=== PATIENT | female | born 1960 | race Two or more races ===

== ENCOUNTER 2025-02-24 01:41 | Emergency (ER) | payer MEDICARE, MEDICAID, SELFPAY ==
[2025-02-24 02:00] VITALS: BP 111/74; PULSE 101; RESP 16; TEMP 36.7; O2SAT 100; BMI 27.6
--- NOTE | 2025-02-24 04:09 | EDNOTE_ITS ---
ED Recheck Abnl Lab Rx-RME/HPI General Chief Complaint: General Adult/Misc Complain Stated Complaint: HIGH BLOOD SUGAR Time Seen by Provider: 02/24/25 02:22 Arrival date/time: 02/24/25 01:41 64F with history of DM (not on insulin), anxiety, depression, and hypothyroidism presents to ED with elevated BS at home around the 550s. Patient got scared and took her DM med and came to ED. Patient has no other symptoms except dizziness, which patient states feels like her normal dizziness since she's had chronic sinusitis since a young age. Limitations: no limitations Related Data Home Medications ?Medication ?Instructions ?Recorded ?Confirmed Levothyroxine * (SYNTHROID *) 112 mcg PO QDAY #0 tabs 12/06/13 [place]-3S/Dha/Epa/Fish Oil (Fish 1 cap PO QDAY ##0 050 02/[address] 1,000 mg Softgel) clonazepam 2 mg tablet (Klonopin) 2 mg PO BID #0 tabs 12/06/13 diphenhydramine HCl 25 mg tablet 25 tab PO TID PRN ITC DOMINGO ##0 12/06/13 (Benadryl Allergy) metformin 1,000 mg tablet 1,000 mg PO QDAC #0 tabs 02/12 (Glucophage) sertraline 50 mg tablet (Zoloft) 50 mg PO HS #0 tabs 0 12/06/13 atorvastatin 20 mg tablet (Lipitor) 20 mg PO HS #0 tab s 11/10/16 loratadine 10 mg tablet (Claritin) 10 mg PO QDAY #0 ta bs 11/10/16 omeprazole 40 mg capsule,delayed 40 mg PO QDAY ##0 06/18 release Previous Rx's ?Medication ?Instructions ?Recorded ibuprofen 800 mg tablet 800 mg PO TID PRN pain #30 t abs 04/13/19 Allergies Allergy/AdvReac Type Severity Reaction Status Date / Time No Known Allergies Allergy Verified 02/24/25 01:43 Review of Systems Review of Systems Systems Reviewed: All systems reviewed, normal except as documented Constitutional Constitutional: Reports system reviewed and no additional complaints, except as documented, Denies fever(s) and Denies headache(s) ENT Ears, Nose, Mouth, and Throat: Denies disequilibrium and Denies headache(s) Cardiovascular Cardiovascular: Reports system reviewed and no additional complaints, except as documented, Denies chest pain and Denies dyspnea Respiratory Respiratory: Reports system reviewed and no additional complaints, except as documented, Denies cough and Denies dyspnea Gastrointestinal Gastrointestinal: Reports system reviewed and no additional complaints, except as documented, Denies abdominal pain, Denies nausea and Denies vomiting Neurologic Neurologic: Reports system reviewed and no additional complaints, except as documented, Denies confusion, Denies disequilibrium and Denies headache(s) Psychiatric Psychiatric: Denies confusion Past Medical History Past Medical History CARDIAC: Positive Hypercholesterolemia; Negative Congestive Heart Failure RESPIRATORY: Negative Chronic Obstructive Pulmonary Disease (COPD) GENITOURINARY: Negative Renal Disease ENDOCRINE: Positive Diabetes Mellitus Type 2; Negative Diabetes Mellitus Type 1 PSYCHO/SOCIAL: Positive Anxiety Social History SMOKING STATUS: Never smoker ED Exam General Limitations: Present no limitations General appearance: Present alert, in no apparent distress and anxious Head Head exam: Present atraumatic Eye Eye exam: Present normal appearance, PERRL and EOMI ENT ENT exam: Present normal exam, normal oropharynx and mucous membranes moist Neck Neck exam: Present normal inspection, full ROM and trachea midline Chest Chest inspection: Present normal inspection and symmetric chest wall rise Respiratory Respiratory exam: Present normal lung sounds bilaterally Cardiovascular Cardiovascular exam: Present regular rate, normal rhythm and normal heart sounds Abdominal Exam Abdominal exam: Present soft and normal bowel sounds Extremities Exam Extremities exam: Present normal inspection and full ROM Back Exam Back exam: Present normal inspection and full ROM Neurological Exam Neurological exam: Present alert, oriented X3 and CN II-XII intact Psychiatric Psychiatric exam: Present normal affect and normal mood Skin Skin exam: Present warm, dry, intact and normal color Course Quality Measures none Orders Category Date Time Status Fingerstick [Bedside Blood Glucose] NOW Care 02/24/25 01:54 Completed Vital Signs Vital signs: Vital Signs Temperature 98.1 F 02/24/25 02:00 Pulse Rate 101 H 02/24/25 02:00 Respiratory Rate 16 02/24/25 02:00 Blood Pressure 111/74 02/24/25 02:00 Pulse Oximetry (%) 100 02/24/25 02:00 Oxygen Delivery Method Room Air 02/24/25 02:00 O2 at 100% on RA and WNLs Recheck / Abnormal Lab / Rx MDM Narrative MDM Narrative:: 64F with history of DM (not on insulin), anxiety, depression, and hypothyroidism presents to ED with elevated BS at home around the 550s. Patient got scared and took her DM med and came to ED. Patient has no other symptoms except dizziness, which patient states feels like her normal dizziness since she's had chronic sinusitis since a young age. Physical exam reveals normal pupil response and EOM. CN II-XII grossly intact. Neg pronator test. Strength equal bilaterally. Normal WOB. Gait normal. Speech normal. Patient is afebrile, alert, but anxious. BS is 345. Medical Billing And Coding Instructor given. Patient data External records reviewed:: [facility] previous records Clinical information provided by:: patient Social determinants that could affect healthcare access:: mental health Patient has the following chronic illnesses:: DM (not on insulin), anxiety, depression, and hypothyroidism How is presenting disease/condition affected by chronic disease/condition?: ex acerbated by Evaluation data The following diagnostics were reviewed and interpreted by me:: lab results Lab and/or radiology exams considered but not ordered:: ordered Interpretation Summary: above Medications / Prescriptions Medications or Prescriptions considered but not ordered:: not ordered Medication administrations:: n/a Consultations Consultation(s) initiated? (list below): No Diagnosis Recheck Differential Diagnosis: encounter for medication refill, encounter for wound recheck, encounter for recheck of burn, encounter for removal of sutures, warfarin-induced coagulopathy and other (hyperglycemia ) Most likely diagnosis given after review of the tests above:: hyperglycemia Admission Indicated Admission indicated?: not indicated Admission Request Was there a request for admission?: No Disposition Plan Disposition Plan: Discharge Discharge Attestation Discharge Attestation: The patient and all family members were given an opportunity to ask questions and understood the discharge instructions. Discharge instructions specifically effects, indications for sooner follow up or return to the emergency department, and the expected course of current diagnosis. Patient condition: Stable Discharge Plan Plan Patient Disposition: HOME (Self Care) Discharge Disposition comment: Stable Prescriptions/Referrals Prescriptions/Med Rec: No Action metformin [Glucophage] 1,000 MG tablet 1,000 mg PO QDAC Qty: 0 diphenhydramine HCl [Benadryl Allergy] 25 MG tablet 25 tab PO TID PRN (Reason: ITCHING) Qty: 0 clonazepam [Klonopin] 2 MG tablet 2 mg PO BID Qty: 0 sertraline [Zoloft] 50 MG tablet 50 mg PO HS Qty: 0 Levothyroxine * (SYNTHROID *) 112 MCG tablet 112 mcg PO QDAY Qty: 0 [place]-3S/Dha/Epa/Fish Oil (Fish Oil Dr 1,000 mg Softgel) 1 EACH CAPSULE.DR 1 cap PO QDAY Qty: 0 omeprazole 40 MG capsule,delayed release(DR/EC) 40 mg PO QDAY Qty: 0 loratadine [Claritin] 10 MG tablet 10 mg PO QDAY Qty: 0 atorvastatin [Lipitor] 20 MG tablet 20 mg PO HS Qty: 0 ibuprofen 800 mg tablet 800 mg PO TID PRN (Reason: pain) Qty: 30 0RF Problem List Clinical Impression: Hyperglycemia Patient/Caregiver Discharge Instructions Education Materials: High Blood Sugar (Hyperglycemia) Additional Instructions: Please follow-up with PCP within 24-48 hours and return immediately if symptoms worsen. Print Language: Omani Stand Alone Forms: Patient Portal Info Letter PA/LITERATURE PROFESSOR Supervising Physician PA/LITERATURE PROFESSOR Supervising Physician: Dr. Chin
== END 2025-02-24 02:32 | disposition home or self-care (01) ==
LOC: SERX 02:25
PROVIDERS: Emergency Provider Emergency Medicine
DX: E11.65 Type 2 diabetes mellitus with hyperglycemia (principal); Z79.84 Long term (current) use of oral hypoglycemic drugs
CPT/HCPCS: 99282

== ENCOUNTER 2025-03-13 22:48 | Emergency (ER) | payer MEDICARE, MEDICAID, SELFPAY ==
--- NOTE | 2025-03-13 23:03 | EKG_ITS ---
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: : 1960 Requested By: ED Temporary Provider Order Number: [id number] Reading MD: ED Temporary Provider Measurements Intervals Dailey Rate: 97 P: 69 CA: 154 QRS: -83 QRSD: 81 T: 42 QT: 315 QTc: 401 Interpretive Statements SINUS RHYTHM LOW QRS VOLTAGE IN PRECORDIAL LEADS [QRS DEFLECTION < 1.0 mV IN CHEST LEADS] POSSIBLE RIGHT VENTRICULAR CONDUCTION DELAY [RSR (QR) IN V1/V2] LEFT ANTERIOR FASCICULAR BLOCK [QRS AXIS <= -45, QR IN I, RS IN II] ANTERIOR MYOCARDIAL INFARCTION , PROBABLY OLD [40+ ms Q WAVE AND/OR ST/T ABNORMALITY IN V3/V4] INFERIOR MYOCARDIAL INFARCTION , PROBABLY OLD [40+ ms Q WAVE AND/OR ST/T ABNORMALITY IN II/aVF] Compared to ECG 03/31/2022 01:06:26 Low QRS voltage now present Left anterior fascicular block now present Myocardial infarct finding now present Left-axis deviation no longer present /store/S0/[id number]/[id number].pdf
[2025-03-13 23:29] VITALS: BP 109/62; PULSE 99; RESP 16; TEMP 37; O2SAT 95
--- NOTE | 2025-03-14 00:16 | EDNOTE_ITS ---
ED Dizzyness RME/HPI General Chief Complaint: Dizziness Stated Complaint: DIZZINESS,N/V Time Seen by Provider: 03/13/25 23:27 Arrival date/time: 03/13/25 22:48 RME / HPI RME / HPI Narrative: 65-year-old female presents to the ED with the complaint of ongoing dizziness, nausea, and vomiting. She has had increasing congestion and postnasal drip which bothers her sleep. She is currently taking promethazine 6.25 mg / 5 mL for dizziness . She has had multiple previous occurrences of this. She has been diagnosed with chronic sinusitis for many years. She was seen by a specialist. She is supposed to be using a nasal spray but ran out approximately 2 weeks ago. She is also supposed to be taking loratadine but states it was not working for her so her doctor stopped it and did not prescribe any additional medications. She denies any fever or chills, ear pain or sore throat. She denies any headache, chest pain, or shortness of breath. She denies any abdominal pain. Related Data Home Medications ?Medication ?Instructions ?Recorded ?Confirmed Levothyroxine * (SYNTHROID *) 112 mcg PO QDAY #0 tabs 12/06/13 [place]-3S/Dha/Epa/Fish Oil (Fish 1 cap PO QDAY ##0 05/0 02/[address] 1,000 mg Softgel) clonazepam 2 mg tablet (Klonopin) 2 mg PO BID #0 tabs 12/06/13 diphenhydramine HCl 25 mg tablet 25 tab PO TID PRN ITC DOMINGO ##0 12/06/13 (Benadryl Allergy) metformin 1,000 mg tablet 1,000 mg PO QDAC #0 tabs 02/12 (Glucophage) sertraline 50 mg tablet (Zoloft) 50 mg PO HS #0 tabs 0 12/06/13 atorvastatin 20 mg tablet (Lipitor) 20 mg PO HS #0 tab s 11/10/16 loratadine 10 mg tablet (Claritin) 10 mg PO QDAY #0 ta bs 11/10/16 omeprazole 40 mg capsule,delayed 40 mg PO QDAY ##0 06/18 release Previous Rx's ?Medication ?Instructions ?Recorded ibuprofen 800 mg tablet 800 mg PO TID PRN pain #30 t abs 04/13/19 cetirizine 10 mg tablet (Zyrtec) 10 mg PO QDAY allergy symptoms #30 03/14/25 tabs fluticasone propionate 50 2 spray intranasal QDAY #11 mL 03/14/25 mcg/actuation nasal spray,suspension (Flonase Allergy Relief) meclizine 25 mg tablet 25 mg PO BID PRN dizziness # 14 tabs 03/14/25 ondansetron 4 mg disintegrating 4 mg PO Q6H PRN nausea and 03/14/25 tablet vomiting #10 tabs Allergies Allergy/AdvReac Type Severity Reaction Status Date / Time No Known Allergies Allergy Verified 02/24/25 01:43 Review of Systems Review of Systems Systems Reviewed: All systems reviewed, normal except as documented Past Medical History Past Medical History CARDIAC: Positive Hypercholesterolemia; Negative Congestive Heart Failure RESPIRATORY: Negative Chronic Obstructive Pulmonary Disease (COPD) GENITOURINARY: Negative Renal Disease ENDOCRINE: Positive Diabetes Mellitus Type 2; Negative Diabetes Mellitus Type 1 PSYCHO/SOCIAL: Positive Anxiety Social History SMOKING STATUS: Never smoker ED Exam Narrative Physical exam: A&O, afebrile and non-toxic appearing, Mauritanian-speaking, 65-year-old female who appears older than stated age. No acute distress. Pupils are PERRL, EOMs intact. Cranial nerves II through XII grossly intact. Facial sensory and motor intact. TMs and pharynx without erythema. Sinus drainage noted to posterior pharynx. Nares are pale and boggy. Lung sounds are clear, RRR, Abdomen is non- distended. Moves all extremities well. Course Course Course Narrative: Patient was given Zofran 4 mg ODT for her nausea. She was also given meclizine 25 mg p.o. She will be discharged home with Zyrtec, Flonase nasal spray, and meclizine prescriptions. Quality Measures none Orders Category Date Time Status EKG (ED ONLY) *Do not use* NOW Care 03/13/25 23:03 Completed EKG (ED Only) Stat Exams 03/13/25 23:03 Draft Vital Signs Vital signs: Vital Signs Temperature 98.6 F 03/13/25 23:29 Pulse Rate 99 03/13/25 23:29 Respiratory Rate 16 03/13/25 23:29 Blood Pressure 109/62 03/13/25 23:29 Pulse Oximetry (%) 95 03/13/25 23:29 Oxygen Delivery Method Room Air 03/13/25 23:29 Dizziness MDM Narrative MDM Narrative:: Symptoms, exam and diagnostic studies are consistent with: Vertigo secondary to allergies and chronic sinusitis with postnasal drip. Patient was discharged home in stable condition. Patient/family advised to follow-up with their PCP in 24-48 hours. Encouraged to return to the ED for any new or worsening symptoms. Patient data External records reviewed:: [facility] previous records Clinical information provided by:: patient and spouse Social determinants that could affect healthcare access:: none Patient has the following chronic illnesses:: Diabetes, depression, hypothyroidism, chronic sinusitis, and allergies. How is presenting disease/condition affected by chronic disease/condition?: caused by Evaluation data The following diagnostics were reviewed and interpreted by me:: other (specify) (None at this time) Lab and/or radiology exams considered but not ordered:: N/A Interpretation Summary: N/A Medications / Prescriptions Medications or Prescriptions considered but not ordered:: N/A Medication administrations:: Meclizine 25 mg p.o. and Zofran 4 mg ODT. Consultations Consultation(s) initiated? (list below): No Diagnosis Dizziness Differential Diagnosis: acute vestibular neuronitis and other (Chronic sinusitis, allergic rhinitis) Most likely diagnosis given after review of the tests above:: Chronic sinusitis, allergic rhinitis Admission Indicated Admission indicated?: not indicated Explain why admission is indicated or not indicated:: Patient is stable for discharge Admission Request Was there a request for admission?: No Admission Attestation Admission request attestation: N/A Disposition Plan Disposition Plan: Discharge Discharge Attestation Discharge Attestation: The patient and all family members were given an opportunity to ask questions and understood the discharge instructions. Discharge instructions specifically effects, indications for sooner follow up or return to the emergency department, and the expected course of current diagnosis. Patient condition: Stable Discharge Plan Plan Patient Disposition: HOME (Self Care) Discharge Disposition comment: Stable Prescriptions/Referrals Prescriptions/Med Rec: New cetirizine [Zyrtec] 10 mg tablet 10 mg PO QDAY Qty: 30 0RF fluticasone propionate [Flonase Allergy Relief] 50 mcg/actuation spray,suspension 2 spray intranasal QDAY Qty: 11 0RF Rx Instructions: administer into each nostril meclizine 25 mg tablet 25 mg PO BID PRN (Reason: dizziness) Qty: 14 0RF ondansetron 4 mg tablet,disintegrating 4 mg PO Q6H PRN (Reason: nausea and vomiting) Qty: 10 0RF No Action metformin [Glucophage] 1,000 MG tablet 1,000 mg PO QDAC Qty: 0 diphenhydramine HCl [Benadryl Allergy] 25 MG tablet 25 tab PO TID PRN (Reason: ITCHING) Qty: 0 clonazepam [Klonopin] 2 MG tablet 2 mg PO BID Qty: 0 sertraline [Zoloft] 50 MG tablet 50 mg PO HS Qty: 0 Levothyroxine * (SYNTHROID *) 112 MCG tablet 112 mcg PO QDAY Qty: 0 [place]-3S/Dha/Epa/Fish Oil (Fish Oil Dr 1,000 mg Softgel) 1 EACH CAPSULE.DR 1 cap PO QDAY Qty: 0 omeprazole 40 MG capsule,delayed release(DR/EC) 40 mg PO QDAY Qty: 0 loratadine [Claritin] 10 MG tablet 10 mg PO QDAY Qty: 0 atorvastatin [Lipitor] 20 MG tablet 20 mg PO HS Qty: 0 ibuprofen 800 mg tablet 800 mg PO TID PRN (Reason: pain) Qty: 30 0RF Problem List Clinical Impression: Labyrinthitis, Chronic sinusitis Patient/Caregiver Discharge Instructions Education Materials: Chronic Sinusitis, ED Labyrinthitis, ED Allergic Rhinitis Additional Instructions: Take the medications as prescribed. Contact your primary care physician first thing in the morning to schedule an appointment within 24 to 48 hours. Return to the emergency department for any new or worsening symptoms Print Language: Mauritanian Stand Alone Forms: [place] Award Info., Patient Portal Info Letter PA/DUMP MOTOR OPERATOR Supervising Physician PA/DUMP MOTOR OPERATOR Supervising Physician: Dr. Machado
[2025-03-14] MEDS: MECLIZINE HCL 25 MG TABLET PO (00:36)
[2025-03-14] MEDS: ONDANSETRON ODT 4 MG TABRAP PO (00:36)
== END 2025-03-14 00:47 | disposition home or self-care (01) ==
LOC: SERX 03-14 01:47
PROVIDERS: Emergency Provider Emergency Medicine
DX: H83.09 Labyrinthitis, unspecified ear (principal); J32.9 Chronic sinusitis, unspecified; I44.4 Left anterior fascicular block
CPT/HCPCS: 93005; 99282; Q0162; A9270